=== PATIENT | male | born 1970 | race Hispanic/Latino ===

== ENCOUNTER → 2019-07-14 | Day surgery (SDC) | payer OTHER ==
[~2019-07-14] MED LIST: ACETAMINOPHEN 1000 MG/100 ML IV ONE; BUPIVACAINE 0.5%/EPI 30 ML SDV INJ ONE; CEFAZOLIN SOD 1 GM/NS 50ML 100 ML IV ONE; DEXAMETHASONE SOD PHOS INJ 4 MG/ML VIAL ONE; FENTANYL CITRATE/PF 100MCG/2 ML INJ ONE; KETOROLAC TROMETHAMINE 30 MG/ML VIAL ONE; LIDOCAINE HCL 2% LOCAL INJ 5 ML SDV VIAL INJ ONE; MIDAZOLAM HCL 2 MG/2 ML VIAL ONE; ONDANSETRON HCL INJ 2MG/ML 2ML 2 MG/ML VIAL ONE; PROPOFOL IV EMULSION 10 MG/ML 20 ML VIAL ONE; SEVOFLURANE INHAL SOLN 250 ML PEN BTL ONE
[2019-07-14 08:55] VITALS: BP 116/59
--- NOTE | 2019-07-14 22:08 | Operative Report ---
DATE OF PROCEDURE: 07/14/2019 SURGEON: Anthony Meyers MD PREOPERATIVE DIAGNOSES: 1. Right knee medial meniscus tear. 2. Right knee degenerative joint disease of the knee. POSTOPERATIVE DIAGNOSES: 1. Right knee medial meniscus tear. 2. Right knee degenerative joint disease of the knee. OPERATIONS AND PROCEDURES PERFORMED: The patient underwent right knee examination under anesthesia, right knee arthroscopy, right knee partial medial meniscectomy, right knee chondroplasty of the patella, the trochlea, the medial femoral condyle, and medial tibial plateau. DIRECTOR CHECK: There was no assistant professor of surgery. ANESTHESIA: General endotracheal intubation anesthesia. IV FLUIDS: Per the anesthesia record. BRIEF DESCRIPTION OF THE PATIENT'S OPERATIVE PROCEDURE: Mr. Davis was taken to the operating room, placed in supine position on the operating table. Following induction of general anesthesia as well as endotracheal intubation, the patient's right lower extremity was examined under anesthesia. He was found to have a mild effusion within the joint, but otherwise ligamentously stable knee. The patient's lower extremity was prepped and draped in the standard surgical fashion. A two-port technique used to provide this patient arthroscopic approach to the knee joint. Examination of suprapatellar pouch and medial and lateral gutters found no evidence of loose bodies. There was, however, evidence of chondromalacia of the patellar and trochlear surfaces. The scope was advanced to medial compartment. Examination of the medial compartment demonstrated chondromalacia of the articulating surfaces. There was also a torn macerated posterior horn of the medial meniscus. A combination of biting forceps and a motorized shaver used to resect the torn portion of meniscus. Chondroplasties of the medial femoral condyle and medial tibial plateau performed at this time. Scope was advanced to the intercondylar notch. Anterior cruciate ligament was identified and found to be intact. Scope was advanced to the lateral compartment and there was no significant pathology in the lateral compartment. The scope was then placed in suprapatellar pouch and chondroplasties of the patella and trochlea were performed. The knee was deflated with sterile normal saline. The portal sites were closed with 4-0 nylon suture. The portal sites as well as knee itself were injected with 0.5% Marcaine with epinephrine. Sterile dressings were applied and the patient was awakened, taken to postanesthesia care unit in stable condition. MD BRIANNA Lutz/NARINDER /[id number]
== END | disposition home or self-care (01) ==
LOC: OR 05:00
PROVIDERS: ATTEND Specialist
DX: S83.221A Peripheral tear of medial meniscus, current injury, right knee, initial encounter (principal); M22.41 Chondromalacia patellae, right knee; M17.11 Unilateral primary osteoarthritis, right knee; X58.XXXA Exposure to other specified factors, initial encounter; Z01.810 Encounter for preprocedural cardiovascular examination
CPT/HCPCS: 29881; 93005; J0131; J0690; J1100; J1885; J2001; J2250; J2405; J2704; J3010

== ENCOUNTER 2019-08-15 07:00 | Outpatient (RCR) | payer OTHER | END 2019-08-17 | LOC: PT 07:00 | PROVIDERS: ATTEND Specialist | DX: M25.561 Pain in right knee (principal); M25.661 Stiffness of right knee, not elsewhere classified; M62.81 Muscle weakness (generalized); R26.2 Difficulty in walking, not elsewhere classified ==

== ENCOUNTER 2019-08-29 07:02 | Outpatient (RCR) | payer OTHER | END 2019-09-16 | LOC: PT 07:02 | PROVIDERS: ATTEND Specialist | DX: M25.561 Pain in right knee (principal); M25.661 Stiffness of right knee, not elsewhere classified; R26.2 Difficulty in walking, not elsewhere classified; M62.81 Muscle weakness (generalized) ==